=== PATIENT | female | born 1940 | race Caucasian/White ===

== ENCOUNTER 2024-04-28 09:32 | Observation (INO) ==
[2024-04-28 10:55] LABS: BASOPHILS # (AUTO) 0.1 X10^3/uL (0.0-0.1); BASOPHILS % (AUTO) 0.7 % (0.2-1.0); EOSINOPHILS # (AUTO) 0.4 x10^3/uL (0.0-0.2); EOSINOPHILS % (AUTO) 3.4 % (0.9-2.9); HEMATOCRIT 34.2 % (36.0-47.0); HEMOGLOBIN 10.8 g/dL (12.0-16.0); LYMPHOCYTES # (AUTO) 1.2 X10^3/uL (1.3-2.9); LYMPHOCYTES % (AUTO) 11.4 % (21.0-51.0); MEAN CORPUSCULAR HEMOGLOBIN 27.3 pg (27.0-34.0); MEAN CORPUSCULAR HGB CONC 31.7 g/dL (33.0-35.0); MEAN CORPUSCULAR VOLUME 86.2 fL (80.0-100.0); MEAN PLATELET VOLUME 8.6 fL (7.4-11.0); MONOCYTES # (AUTO) 0.9 x10^3/uL (0.3-0.8); MONOCYTES % (AUTO) 8.3 % (0.0-13.0); NEUTROPHILS # (AUTO) 7.9 x10^3/uL (2.2-4.8); NEUTROPHILS % (AUTO) 76.2 % (42.0-75.0); PLATELET COUNT 222 X10^3/uL (150.0-450.0); RED BLOOD COUNT 3.97 X10^6/uL (3.5-5.4); RED CELL DISTRIBUTION WIDTH 15.2 % (11.6-16.5); WHITE BLOOD COUNT 10.4 X10^3/uL (3.6-10.0)
[2024-04-28] MEDS ORDERED: ZOFRAN INJ 4 MG VIAL IVP PRN (11:03)
[2024-04-28 11:08] VITALS: BMI 31.0
[2024-04-28 11:09] LABS: ALANINE AMINOTRANSFERASE 17 Units/L (12-78); ALBUMIN 3.2 g/dL (3.4-5.0); ALKALINE PHOSPHATASE 105 Units/L (46-116); ASPARTATE AMINO TRANSFERASE 97 Units/L (15-37); BLOOD UREA NITROGEN 33 mg/dL (7-18); CALCIUM 9.3 mg/dL (8.5-10.1); CARBON DIOXIDE 28.4 mmol/L (21-32); CHLORIDE 104 mmol/L (98-107); COR CA(FOR HYPOALB) 9.9 mg/dL (8.5-10.1); CREATININE 1.21 mg/dL (0.55-1.02); GLUCOSE 95 mg/dL (65-99); MAGNESIUM 1.8 mg/dL (2.0-2.9); SODIUM 140 mmol/L (136-145); eGFR NON BLACK RACES 45 (>60)
[2024-04-28] MEDS: NS 1,000 ML IV 1,000 ML IV SCH (11:37)
[2024-04-28] MEDS: NS 1,000 ML IV 1,000 ML ONE (11:49)
--- NOTE | 2024-04-28 12:35 | RAD ---
EXAM: CHEST, 1 VIEW HISTORY: SOB; COMPARISON: No relevant prior studies were available for comparison at the time of interpretation. TECHNIQUE: CHEST, 1 VIEW FINDINGS: Chest: Lines and tubes: Cardiac leads overlie the chest. Mediastinum: Borderline cardiomegaly. Pulmonary vessels: No pulmonary vascular congestion. Lung rolle: No suspicious airspace opacity. Pleura: No effusion. No pneumothorax. Bones and soft tissues: No acute osseous or soft tissue abnormality. IMPRESSION: 1. No acute cardiopulmonary abnormality THIS IS AN ELECTRONICALLY VERIFIED FINAL REPORT 04/28/2024 12:31 PM - Electronically signed by Iraj Leon MD
--- NOTE | 2024-04-28 12:40 | DR.H&P ---
H&P History & Physical for Day of: H&P Date: 04/28/24 Chief Complaint Chief Complaint: Vomiting, weakness History of Present Illness History of Present Illness: Ms. Cook is a 83-year-old female with a past medical history of CAD, CHF, hypertension and hyperlipidemia presented with worsening weakness and decreased oral intake. She started feeling sick yesterday morning with episode of vomiting and has not been able to eat much since then. She was able to tolerate fluids yesterday. Denies fever or chills or abdominal pain. Denies diarrhea. Patient does report some shortness of breath. She was seen in the clinic today and due to worsening symptoms was sent to the hospital for direct admission. She does not appear to be in any distress. She is currently on room air. Plan: Admit to [facility] with telemetry. Order stat labs including CBC, CMP, BNP, troponin and UA. Will order chest x-ray and respiratory panel. Start gentle hydration. Add Zofran as needed. Clear liquids for now. Resume home medications. Monitor a.m. labs and imaging. Allergies Allergies Allergy/AdvReac Type Severity Reaction Status Date / Time No Known Allergies Allergy Verified 04/28/24 11:17 Labs 04/28/24 10:40 04/28/24 10:40 Labs: Laboratory WBC 10.4 X10^3/uL (3.6-10.0) H 04/28/24 10:40 RBC 3.97 X10^6/uL (3.5-5.4) 04/28/24 10:40 Hgb 10.8 g/dL (12.0-16.0) L 04/28/24 10:40 Hct 34.2 % (36.0-47.0) L 04/28/24 10:40 MCV 86.2 fL (80.0-100.0) 04/28/24 10:40 MCH 27.3 pg (27.0-34.0) 04/28/24 10:40 MCHC 31.7 g/dL (33.0-35.0) L 04/28/24 10:40 RDW 15.2 % (11.6-16.5) 04/28/24 10:40 Plt Count 222 X10^3/uL (150.0-450.0) 04/28/24 10:40 MPV 8.6 fL (7.4-11.0) 04/28/24 10:40 Neut % (Auto) 76.2 % (42.0-75.0) H 04/28/24 10:40 Lymph % (Auto) 11.4 % (21.0-51.0) L 04/28/24 10:40 [place] % (Auto) 8.3 % (0.0-13.0) 04/28/24 10:40 Eos % (Auto) 3.4 % (0.9-2.9) H 04/28/24 10:40 Baso % (Auto) 0.7 % (0.2-1.0) 04/28/24 10:40 Neut # (Auto) 7.9 x10^3/uL (2.2-4.8) H 04/28/24 10:40 Lymph # (Auto) 1.2 X10^3/uL (1.3-2.9) L 04/28/24 10:40 [place] # (Auto) 0.9 x10^3/uL (0.3-0.8) H 04/28/24 10:40 Eos # (Auto) 0.4 x10^3/uL (0.0-0.2) H 04/28/24 10:40 Baso # (Auto) 0.1 X10^3/uL (0.0-0.1) 04/28/24 10:40 Absolute Nucleated RBC 0.1 /100WBC 04/28/24 10:40 Review of Systems Constitutional: Weakness and Malaise Eyes: No Symptoms Reported ENT: No Symptoms Reported Respiratory: Shortness of Breath Cardiovascular: No Symptoms Reported Gastrointestinal: Vomiting Genitourinary: No Symptoms Reported Musculoskeletal: No Symptoms Reported Skin: No Symptoms Reported Neurological: No Symptoms Reported Oriented: Normal Eyes: Normal Ear: Normal Nose: Normal Respiratory: Clear Throughout Cardiovascular: Normal Auscultation: Bowel Sounds: Normal Palpation: Normal Tenderness: Normal Skin: Decreased Turgur Musculoskeletal: Normal Psychiatric: Normal Mood Description: Calm Affect: Normal Speech Pattern: Clear and Appropriate Assessment/Plan (1) Dehydration: Status: Acute (2) Generalized weakness: Status: Acute (3) Nausea & vomiting: Qualifiers: Vomiting type: unspecified Qualified Code(s): R11.2 - Nausea with vomiting, unspecified Status: Acute (4) CAD (coronary artery disease): Qualifiers: Associated angina: without angina Coronary Disease-Associated Artery/[place] type: unspecified vessel or lesion type [place] vs. transplanted heart: [place] heart Qualified Code(s): I25.10 - Atherosclerotic heart disease of [place] coronary artery without angina pectoris Status: Acute (5) HTN (hypertension): Qualifiers: Hypertension type: primary hypertension Qualified Code(s): I10 - Essential (primary) hypertension Status: Acute Review H&P Reviewed: Yes Patient was examined?: Yes
[2024-04-28] MEDS ORDERED: ZESTRIL TAB 20 MG ONE (13:41)
[2024-04-28] MEDS: TOPROL XL PO SCH (14:04)
[2024-04-28] MEDS: ZESTRIL TAB 20 MG PO SCH (14:04)
[2024-04-28] MEDS: PEPCID TAB 20 MG PO SCH (14:04)
[2024-04-28 16:21] LABS: BILIRUBIN,URINE NEGATIVE (NEGATIVE); BLOOD/HEMOGLOBIN,URINE 1+ (NEGATIVE); GLUCOSE, URINE NEGATIVE (NEGATIVE); KETONES,URINE NEGATIVE (NEGATIVE); LEUKOCYTE ESTERASE ,URINE 3+ (NEGATIVE); NITRITES,URINE POSITIVE (NEGATIVE); PROTEIN,URINE 2+ (NEGATIVE); UROBILINOGEN,URINE NORMAL (NORMAL)
[2024-04-28 16:31] LABS: APPEARANCE,URINE CLOUDY (CLEAR); COLOR,URINE YELLOW (YELLOW)
[2024-04-28 16:35] LABS: BACTERIA,URINE 3+ /HPF (NEGATIVE); SQUAMOUS EPITHELIAL CELL,UR FEW /HPF (NEGATIVE)
[2024-04-28] MEDS: ROCEPHIN VIAL 1 GRAM 1 G in NS 100 ML IV 100 ML IV SCH (17:44)
[2024-04-28] MEDS: ULTRAM PO SCH (17:45)
[2024-04-28] MEDS: MAG-OX TAB PO SCH (18:24)
[2024-04-28] MEDS ORDERED: CONSULT PHARMACY - POTASSIUM & MAGNESIUM XX SCH (19:00)
[2024-04-28] MEDS: LIPITOR TAB 40 MG PO SCH (20:30)
[2024-04-28] MEDS: NORCO 10/325 TAB PO SCH (20:30)
[2024-04-29 05:55] LABS: BASOPHILS # (AUTO) 0.1 X10^3/uL (0.0-0.1); EOSINOPHILS # (AUTO) 0.3 x10^3/uL (0.0-0.2); EOSINOPHILS % (AUTO) 4.6 % (0.9-2.9); HEMATOCRIT 29.2 % (36.0-47.0); HEMOGLOBIN 9.4 g/dL (12.0-16.0); LYMPHOCYTES # (AUTO) 1.6 X10^3/uL (1.3-2.9); LYMPHOCYTES % (AUTO) 20.7 % (21.0-51.0); MEAN CORPUSCULAR HEMOGLOBIN 27.7 pg (27.0-34.0); MEAN CORPUSCULAR HGB CONC 32.3 g/dL (33.0-35.0); MEAN CORPUSCULAR VOLUME 85.9 fL (80.0-100.0); MEAN PLATELET VOLUME 8.9 fL (7.4-11.0); MONOCYTES # (AUTO) 0.8 x10^3/uL (0.3-0.8); MONOCYTES % (AUTO) 11.2 % (0.0-13.0); NEUTROPHILS # (AUTO) 4.7 x10^3/uL (2.2-4.8); NEUTROPHILS % (AUTO) 62.5 % (42.0-75.0); PLATELET COUNT 197 X10^3/uL (150.0-450.0); WHITE BLOOD COUNT 7.5 X10^3/uL (3.6-10.0)
[2024-04-29 06:11] LABS: ALANINE AMINOTRANSFERASE 17 Units/L (12-78); ALBUMIN 2.6 g/dL (3.4-5.0); ALKALINE PHOSPHATASE 86 Units/L (46-116); ASPARTATE AMINO TRANSFERASE 79 Units/L (15-37); BLOOD UREA NITROGEN 29 mg/dL (7-18); CALCIUM 8.4 mg/dL (8.5-10.1); CARBON DIOXIDE 26.3 mmol/L (21-32); CHLORIDE 110 mmol/L (98-107); COR CA(FOR HYPOALB) 9.5 mg/dL (8.5-10.1); CREATININE 1.13 mg/dL (0.55-1.02); GLUCOSE 91 mg/dL (65-99); MAGNESIUM 1.9 mg/dL (2.0-2.9); POTASSIUM 4.4 mmol/L (3.5-5.1); SODIUM 143 mmol/L (136-145); TOTAL PROTEIN 6.5 g/dL (6.4-8.2); eGFR NON BLACK RACES 49 (>60)
[2024-04-29 08:26] VITALS: TEMP 97.9
[2024-04-29] MEDS ORDERED: ZESTRIL TAB 20 MG ONE (08:29)
[2024-04-29] MEDS: ASPIRIN 81 MG CHEWTAB PO SCH (08:57)
[2024-04-29] MEDS: SYNTHROID 125 mcg TAB PO SCH (08:58)
[2024-04-29 14:23] VITALS: BP 136/63; PULSE 58; RESP 20; O2SAT 98
--- NOTE | 2024-04-30 08:37 | EKG ---
Test Reason : SOB Blood Pressure : */* mmHG Vent. Rate : 61 BPM Atrial Rate : 61 BPM P-R Int : 160 ms QRS Dur : 178 ms QT Int : 454 ms P-R-T Axes : * -2 159 degrees QTc Int : 457 ms Sinus rhythm with occasional premature ventricular complexes Nonspecific intraventricular block Minimal voltage criteria for LVH, may be normal variant ( Bertin product ) Possible Lateral infarct , age undetermined Cannot rule out Inferior infarct , age undetermined Abnormal ECG No previous ECGs available Confirmed by Anil Rose MD ([id number]) on 04/28/2024 1:48:00 PM Referred By: Confirmed By: Anil Rose MD
--- NOTE | 2024-05-01 16:10 | W.DIS.FURT ---
Summary of Discharge Discharge Summary of Date Date of Exam: 04/29/24 Admission Date Date of Admission: 04/28/24 Admission Diagnosis Hospital Course: Ms. Horner is a 83-year-old female with a past medical history of CAD, CHF, hypertension and hyperlipidemia presented with worsening weakness and decreased oral intake. She started feeling sick yesterday morning with episode of vomiting and has not been able to eat much since then. She was able to tolerate fluids yesterday. Denies fever or chills or abdominal pain. Denies diarrhea. Patient does report some shortness of breath. She was seen in the clinic today and due to worsening symptoms was sent to the hospital for direct admission. She was started on hydration and labs were done. UA showed UTI, urine culture was sent. Chest x-ray was negative. She was started on IV antibiotics. Patient was started on clears and diet was advanced as tolerated. Her labs were monitored daily and electrolytes were replaced as needed. She was tolerating p.o. intake, ambulating in the room. She was stable for discharge home, will follow-up with PCP as scheduled. Vital Signs: Vital Signs (72 hours) 04/28/24 11:11 04/28/24 11:40 04/28/24 17:45 Temperature 97.8 F Pulse Rate [Left Brachial] 58 L Respiratory Rate 18 18 Blood Pressure [Left Arm] 176/73 O2 Sat by Pulse Oximetry 97 Oxygen Delivery Method Room Air Room Air 04/28/24 16:00 04/28/24 19:00 04/28/24 19:49 Temperature 98.4 F 97.5 F L Pulse Rate [Left Brachial] 72 63 Respiratory Rate 18 18 Blood Pressure [Left Arm] 173/77 104/56 O2 Sat by Pulse Oximetry 92 L 94 L Oxygen Delivery Method Room Air Room Air Room Air 04/28/24 20:30 04/28/24 20:38 04/28/24 21:30 Temperature Pulse Rate [Left Brachial] Respiratory Rate 18 18 18 Blood Pressure [Left Arm] O2 Sat by Pulse Oximetry Oxygen Delivery Method 04/28/24 21:37 04/28/24 23:11 04/29/24 04:00 Temperature 97.5 F L 97.8 F Pulse Rate [Left Brachial] 72 58 L Respiratory Rate 18 18 18 Blood Pressure [Left Arm] 131/66 145/61 O2 Sat by Pulse Oximetry 95 92 L Oxygen Delivery Method Room Air Room Air 04/28/24 18:45 04/29/24 08:00 04/29/24 08:57 Temperature 97.9 F Pulse Rate [Left Brachial] 61 Respiratory Rate 18 18 20 Blood Pressure [Left Arm] 110/54 O2 Sat by Pulse Oximetry 97 Oxygen Delivery Method Room Air 04/29/24 07:00 04/29/24 09:57 Temperature Pulse Rate [Left Brachial] Respiratory Rate 18 Blood Pressure [Left Arm] O2 Sat by Pulse Oximetry Oxygen Delivery Method Room Air Labs: Laboratory Last Values WBC 7.5 X10^3/uL (3.6-10.0) 04/29/24 05:20 RBC 3.40 X10^6/uL (3.5-5.4) L 04/29/24 05:20 Hgb 9.4 g/dL (12.0-16.0) L 04/29/24 05:20 Hct 29.2 % (36.0-47.0) L 04/29/24 05:20 MCV 85.9 fL (80.0-100.0) 04/29/24 05:20 MCH 27.7 pg (27.0-34.0) 04/29/24 05:20 MCHC 32.3 g/dL (33.0-35.0) L 04/29/24 05:20 RDW 15.0 % (11.6-16.5) 04/29/24 05:20 Plt Count 197 X10^3/uL (150.0-450.0) 04/29/24 05:20 MPV 8.9 fL (7.4-11.0) 04/29/24 05:20 Neut % (Auto) 62.5 % (42.0-75.0) 04/29/24 05:20 Lymph % (Auto) 20.7 % (21.0-51.0) L 04/29/24 05:20 [place] % (Auto) 11.2 % (0.0-13.0) 04/29/24 05:20 Eos % (Auto) 4.6 % (0.9-2.9) H 04/29/24 05:20 Baso % (Auto) 1.0 % (0.2-1.0) 04/29/24 05:20 Neut # (Auto) 4.7 x10^3/uL (2.2-4.8) 04/29/24 05:20 Lymph # (Auto) 1.6 X10^3/uL (1.3-2.9) 04/29/24 05:20 [place] # (Auto) 0.8 x10^3/uL (0.3-0.8) 04/29/24 05:20 Eos # (Auto) 0.3 x10^3/uL (0.0-0.2) H 04/29/24 05:20 Baso # (Auto) 0.1 X10^3/uL (0.0-0.1) 04/29/24 05:20 Absolute Nucleated RBC 0.0 /100WBC 04/29/24 05:20 Sodium 143 mmol/L (136-145) 04/29/24 05:20 Corrected Sodium TNP 04/29/24 05:20 Potassium 4.4 mmol/L (3.5-5.1) 04/29/24 05:20 Chloride 110 mmol/L (98-107) H 04/29/24 05:20 Carbon Dioxide 26.3 mmol/L (21-32) 04/29/24 05:20 BUN 29 mg/dL (7-18) H 04/29/24 05:20 Creatinine 1.13 mg/dL (0.55-1.02) H 04/29/24 05:20 Est GFR (MDRD) Af Amer 59 (>60) 04/29/24 05:20 Est GFR (MDRD) Non-Af 49 (>60) L 04/29/24 05:20 Glucose 91 mg/dL (65-99) 04/29/24 05:20 Calcium 8.4 mg/dL (8.5-10.1) L 04/29/24 05:20 Corrected Calcium 9.5 mg/dL (8.5-10.1) 04/29/24 05:20 Magnesium 1.9 mg/dL (2.0-2.9) L 04/29/24 05:20 Total Bilirubin 0.20 mg/dL (0.2-1.0) 04/29/24 05:20 AST 79 Units/L (15-37) H 04/29/24 05:20 ALT 17 Units/L (12-78) 04/29/24 05:20 Alkaline Phosphatase 86 Units/L (46-116) 04/29/24 05:20 Troponin I High Sens 11.9 ng/L (4.0-60.0) 04/28/24 10:40 B-Natriuretic Peptide 104 pg/mL (0-79) H 04/28/24 10:40 Total Protein 6.5 g/dL (6.4-8.2) 04/29/24 05:20 Albumin 2.6 g/dL (3.4-5.0) L 04/29/24 05:20 Globulin 3.9 g/dL (2.5-4.5) 04/29/24 05:20 Albumin/Globulin Ratio 0.7 Ratio (1.1-2.1) L 04/29/24 05:20 Specimen Type Clean catch urine 04/28/24 16:00 Urine Color Yellow (YELLOW) 04/28/24 16:00 Urine Appearance Cloudy (CLEAR) 04/28/24 16:00 Urine pH 5.0 (5.0 - 8.0) 04/28/24 16:00 Ur Specific [place] 1.015 (1.000-1.030) 04/28/24 16:00 Urine Protein 2+ (NEGATIVE) 04/28/24 16:00 Urine Glucose (UA) Negative (NEGATIVE) 04/28/24 16:00 Urine Ketones Negative (NEGATIVE) 04/28/24 16:00 Urine Blood 1+ (NEGATIVE) 04/28/24 16:00 Urine Nitrite Positive (NEGATIVE) 04/28/24 16:00 Urine Bilirubin Negative (NEGATIVE) 04/28/24 16:00 Urine Urobilinogen Normal (NORMAL) 04/28/24 16:00 Ur Leukocyte Esterase 3+ (NEGATIVE) 04/28/24 16:00 Urine RBC 3-5 /HPF (0-3) A 04/28/24 16:00 Urine WBC 30-50 /HPF (0-5) A 04/28/24 16:00 Ur Squamous Epith Cells Few /HPF (NEGATIVE) 04/28/24 16:00 Urine Bacteria 3+ /HPF (NEGATIVE) 04/28/24 16:00 Ur Culture Indicated? Yes/culture set up 04/28/24 16:00 SARS-CoV-2 (PCR) Negative (NEGATIVE) 04/28/24 14:55 Influenza Type A (PCR) Negative (NEGATIVE) 04/28/24 14:55 Influenza Type B (PCR) Negative (NEGATIVE) 04/28/24 14:55 RSV (PCR) Negative (NEGATIVE) 04/28/24 14:55 Reason For Visit: SOB, WEAKNESS, DIZZINESS Discharge Diagnosis All Active Problems (Updated 04/29/24 @ 13:28 by Jazmyn Partida) Acute cystitis (Acute) HTN (hypertension) (Acute) CAD (coronary artery disease) (Acute) Nausea & vomiting (Acute) Generalized weakness (Acute) Dehydration (Acute) Plan of Treatment: Continue with present treatment and follow up plan. Pt is to keep follow up appointment as instructed and take medications as ordered. Discharge Medications Discharge Medications: No Known Allergies Allergy (Verified 04/28/24 11:17) CONTINUE taking the following medications aspirin 81 mg chewable tablet 81 mg PO QDAY 04/28/24 [History] atorvastatin 40 mg tablet 40 mg PO QPM 04/28/24 [History] famotidine 20 mg tablet (Pepcid) 20 mg PO QDAY 04/28/24 [History] hydrocodone 10 mg-acetaminophen 325 mg tablet 1 tab PO QPM 04/28/24 [History] levothyroxine 125 mcg tablet 125 mcg PO QDAY 04/28/24 [History] lisinopril 20 mg tablet 20 mg PO QDAY 04/28/24 [History] meclizine 25 mg tablet 25 mg PO TID 04/28/24 [History] metoprolol succinate 25 mg tablet,extended release 24 hr 25 mg PO QDAY 04/28/24 [History] tramadol 50 mg tablet 50 mg PO QID 04/28/24 [History] vit C 250 mg-vit E 90 mg-zinc 40 mg-copper 1 [id number] capsule (PreserVision AREDS-2) 1 tab PO BID 04/28/24 [History] New Prescriptions cephalexin 500 mg capsule 500 mg PO BID 7 days #14 caps 04/29/24 [Rx] Discharge Disposition Discharge Disposition: To home Discharge Condition: Stable Discharge Plan Discharge Plan Hospital Course: Ms. Horner is a 83-year-old female with a past medical history of CAD, CHF, hypertension and hyperlipidemia presented with worsening weakness and decreased oral intake. She started feeling sick yesterday morning with episode of vomiting and has not been able to eat much since then. She was able to tolerate fluids yesterday. Denies fever or chills or abdominal pain. Denies diarrhea. Patient does report some shortness of breath. She was seen in the clinic today and due to worsening symptoms was sent to the hospital for direct admission. She was started on hydration and labs were done. UA showed UTI, urine culture was sent. Chest x-ray was negative. She was started on IV antibiotics. Patient was started on clears and diet was advanced as tolerated. Her labs were monitored daily and electrolytes were replaced as needed. She was tolerating p.o. intake, ambulating in the room. She was stable for discharge home, will follow-up with PCP as scheduled. Patient Disposition: 01 HOME, SELF-CARE Condition: Stable Health Concerns: Post Hospitalization: new medications and changes needed to prevent readmission or further decline. Pt educated and given instructions on all concerns. Care Plan Goals: Problem: Activity Intolerance Goal: Increased tolerance to activity Instructions: Follow provided instructions. Follow up with primary physician as directed. Contact primary care physician or report to the closest Emergency Room if condition worsens. Plan of Treatment: Continue with present treatment and follow up plan. Pt is to keep follow up appointment as instructed and take medications as ordered. Prescription drug monitoring program results: PDMP reviewed and no concerns identified Prescriptions: New cephalexin 500 mg capsule 500 mg PO BID 7 Days Qty: 14 0RF Continued atorvastatin 40 mg tablet 40 mg PO QPM lisinopril 20 mg tablet 20 mg PO QDAY hydrocodone-acetaminophen 10-325 mg tablet 1 tab PO QPM tramadol 50 mg tablet 50 mg PO QID famotidine [Pepcid] 20 mg Tablet 20 mg PO QDAY meclizine 25 mg tablet 25 mg PO TID levothyroxine 125 mcg tablet 125 mcg PO QDAY aspirin 81 mg Tablet,Chewable 81 mg PO QDAY metoprolol succinate 25 mg tablet extended release 24 hr 25 mg PO QDAY PreserVision AREDS-2 250-90-40-1 mg Capsule 1 tab PO BID Discontinued chlorthalidone 25 mg tablet 25 mg PO QDAY Orders to Discharge Patient Discharge Orders: Discharge (Routine); Ordered 04/29/24 Ordered By: Jazmyn Partida Follow ups/Referrals Follow ups/Referrals: ALYSSA HUSTON [Nurse Practitioner] - 05/08/24 11:20 am Instructions Instructions: Weakness, [id number], Nausea and Vomiting, Adult, [id number], Rehydration, Older Adult, Dehydration, Older Adult, [id number] Activity Restrictions/Additional Instructions: Monitor blood pressure daily. Hold Chlorthalidone for now, repeat labs in the office. Stand Alone Forms: Excuse From Work or School, Post Hospital Follow Up Care
== END 2024-04-29 15:50 | disposition home or self-care (01) ==
LOC: MED/SURG
PROVIDERS: ADMIT Internal Medicine; ATTEND Internal Medicine
DX: I10 Essential (primary) hypertension; R13.11 Dysphagia, oral phase; E86.0 Dehydration; R11.2 Nausea with vomiting, unspecified; E78.5 Hyperlipidemia, unspecified; I25.10 Atherosclerotic heart disease of native coronary artery without angina pectoris; Z20.822 Contact with and (suspected) exposure to COVID-19; N30.00 Acute cystitis without hematuria; R42 Dizziness and giddiness; R06.02 Shortness of breath; R94.31 Abnormal electrocardiogram [ECG] [EKG]; B96.89 Other specified bacterial agents as the cause of diseases classified elsewhere; R26.89 Other abnormalities of gait and mobility; Z65.8 Other specified problems related to psychosocial circumstances